=== PATIENT | female | born 1970 | race Caucasian/White ===

== ENCOUNTER 2018-08-15 11:33 | Outpatient (REF) | payer BC, SELFPAY ==
[2018-08-15 21:09] LABS: TSH 0.84 uIU/mL (0.358-3.74)
== END 2018-08-15 11:53 ==
LOC: NCHCN 11:33
PROVIDERS: PCP Internal Medicine; Visit Provider Registered Nurse
DX: E03.9 Hypothyroidism, unspecified (principal)
CPT/HCPCS: 84443

== ENCOUNTER 2020-01-01 12:16 | Outpatient (CLI) | payer BC, SELFPAY ==
[2020-01-03 08:05] LABS: COVID-19 RT-PCR Result Not Detected
== END 2020-01-01 12:36 ==
LOC: NCHCO 12:19 → LBO 13:05
PROVIDERS: PCP Nurse Practitioner Family; Visit Provider Nurse Practitioner Family
DX: Z20.828 Contact with and (suspected) exposure to other viral communicable diseases (principal); Z11.59 Encounter for screening for other viral diseases; R05 Cough
CPT/HCPCS: 87449; U0003

== ENCOUNTER 2020-04-22 13:52 | Outpatient (REF) | payer BC, SELFPAY ==
[2020-04-22 21:35] LABS: ALT 27 U/L (14-59); AST 19 U/L (15-37); Albumin 3.4 g/dL (3.4-5.0); Alkaline Phosphatase 88 U/L (46-116); Anion Gap 7.4 mmol/L (3-11); BUN 11 mg/dL (7-18); Bilirubin, Total 0.8 mg/dL (0.2-1.0); CO2 27.6 mmol/L (21.0-32.0); CREATININE 0.85 mg/dL (0.55-1.02); Calcium 8.5 mg/dL (8.5-10.1); Chloride 103 mmol/L (98-107); Glucose 95 mg/dL (74-106); Potassium 4.3 mmol/L (3.5-5.1); Sodium 138 mmol/L (136-145); TSH 2.26 uIU/mL (0.36-3.74); Total Protein 6.4 g/dL (6.4-8.2)
== END 2020-04-22 14:12 ==
LOC: NCHCN 13:52
PROVIDERS: PCP Nurse Practitioner Family; Visit Provider Registered Nurse
DX: E03.9 Hypothyroidism, unspecified (principal); F10.21 Alcohol dependence, in remission; Q60.0 Renal agenesis, unilateral
CPT/HCPCS: 80053; 84443

== ENCOUNTER 2020-04-25 16:57 | Outpatient (REF) | payer BC, SELFPAY ==
[2020-04-25 21:01] LABS: Calculated LDL 187 mg/dL (<100); Cholesterol 288 mg/dL (<200); HDL Cholesterol 75 mg/dL (40-60); Triglyceride 131 mg/dL (<150)
== END 2020-04-25 17:17 ==
LOC: NCHCN 16:57
PROVIDERS: PCP Nurse Practitioner Family; Visit Provider Registered Nurse
DX: E78.5 Hyperlipidemia, unspecified (principal)
CPT/HCPCS: 80061

== ENCOUNTER 2020-05-21 00:55 | Outpatient (CLI) | payer BC, SELFPAY ==
--- NOTE | 2020-05-21 | DI.US_ITS ---
EXAM: US SOFT TISSUE HEAD OR NECK CLINICAL HISTORY: SUBCUTANEOUS MASS OF NECK, R22.1 TECHNIQUE: Ultrasound performed using standard protocol. COMPARISON: No exams were available for comparison FINDINGS: Ultrasound was performed to evaluate questionable palpable area of abnormality of the left superior a nterior cervical region. There is no evidence of a mass. Thyroid and submandibular glands are unrem arkable in appearance. No cervical adenopathy. IMPRESSION: Negative soft tissue ultrasound, if there is a high clinical suspicion of mass additional evaluation with CT may be considered. DATA REPOSITORY:
--- NOTE | 2020-05-21 | DI.MAMMO_ITS ---
EXAM: MAMMO SCREENING CLINICAL HISTORY: SCREENING, PREVENTIVE CARE, Z00.00 TECHNIQUE: Mammograms were interpreted according to the usual protocol including computer analysis w [employer] system, tomosynthesis and C-view imaging. COMPARISON: FINDINGS: The breasts are of moderate density with fairly symmetrical distribution fibroglandular tissue. No d ominant mass or clumped microcalcification is identified in either breast. Current examination is co mpared with previous examinations including November 2015 and there has been no gross interval change in appearance in comparison with the prior studies. IMPRESSION: No specific evidence of malignancy at this time. Routine screening examinations are suggested at yea rly intervals in this age group according to the ACS ACR guidelines. BI-RADS Category 1 - Negative Breast Density - Category B - Scattered areas of fibroglandular density
== END 2020-05-21 01:15 ==
PROVIDERS: PCP Registered Nurse; Visit Provider Registered Nurse
DX: Z12.39 Encounter for other screening for malignant neoplasm of breast (principal); Z00.00 Encounter for general adult medical examination without abnormal findings; R92.2 Inconclusive mammogram
CPT/HCPCS: 76536; 77063; 77067

== ENCOUNTER 2020-06-17 12:11 | Day surgery (SDC) | payer BC, SELFPAY ==
--- NOTE | 2020-06-17 07:07 | W.COLOREPORT ---
Date of service: 06/17/20 Time of Service: 13:30 Colonoscopy Report Date of procedure: 06/17/20 Pre-op diagnosis general: Colon Cancer Screening Post-op diagnosis procedure note: other (multiple polyps) Procedure: Colonoscopy with polypectomy Surgeon: Maday Rodriges Anesthesia proc note operative: other (General/ ASA 2/Morenita Fisher CRNA) Estimated blood loss (mL): 3 Pathology: other (Ascending colon, proximal Transverse, mid-transverse, distal transverse, descending colon x3, sigmoid colon) Complications: None Disposition: same day Indications: The patient is here for Colonoscopy pre-op. She has no family history of colon cancer. She has not had any bowel habit changes. -Discussed colonoscopy bowel prep as well as the procedure. Discussed possible complications of the procedure to include bleeding, pain, perforation, missed small lesion/polyp, sore throat, aspiration and adverse reaction to the medications. Questions were answered to patient?s satisfaction. No guarantees were implied or given. Prep: Miralax/Dulcolax Procedure Start Time: 13:30 Procedure End Time: 13:59 Retraction Time: 16 minutes Findings: multiple pre-cancerous polyps Procedure Description: After informed consent was obtained the patient was taken to the procedure room and placed in a left decubitous position. Monitors were applied and a time out was done. The patients name, date of , procedure, allergies to medications and metal in their body was reviewed. The patient was then sedated. Once sedated and comfortable a rectal exam was done. External exam was normal. Internal exam revealed a normal sphincter tone and no palpable masses. The scope was then introduced and retro-flexed. No internal hemorrhoids were identified. The scope was then advanced to the cecum without difficulty. The ileocecal valve and appendiceal orifice were identified. The prep was good. The scope was then slowly retracted over 16 minutes back into the rectum. Polyps were removed with cold forceps in the ascending colon, Transverse colon x3, descending colon x3, and sigmoid colon x1. The scope was removed and the patient was woken up and taken back to Same day surgery in stable condition. The patient tolerated the procedure well and there were no immediate complications. Follow up: The patient should follow up in 3-5 years unless they develop changes in bowel habits or other new gastrointestinal complaints.
--- NOTE | 2020-06-17 07:08 | W.PM.DSUDISC ---
Discharge Plan Disposition Patient Disposition: HOME Condition: Good Discharge Details Reason For Visit: Colonoscopy Attending Provider: Maday Rodriges Primary Care Provider: CISCO BOTELLO Home Meds and New Rx's Prescriptions: Continued naltrexone 50 mg tablet 50 mg PO DAILY RF: 0 citalopram 10 mg tablet 10 mg PO DAILY RF: 0 omeprazole 20 MG capsule,delayed release(DR/EC) 20 mg PO DAILY RF: 0 levothyroxine 125 MCG tablet 125 mcg PO DAILY RF: 0 Discontinued polyethylene glycol 3350 17 gram/dose powder 238 g PO ONCE Qty: 238 RF: 0 bisacodyl [Dulcolax (bisacodyl)] 5 mg tablet,delayed release (DR/EC) 5 mg PO ONCE Qty: 4 RF: 0 Discharge Instructions Instructions: Colorectal Polyps (DC) Additional Instructions: Findings: 8 polyps Follow up: 3-5 years Please call if you develop: fevers >101.5 Nausea or Vomiting Abdominal pain that is not transient DAY SURGERY UNIT POST ENDOSCOPY INSTRUCTIONS 1. Because there will be medication in your system for the next 24 hours, you may feel a little sleepy. Your coordination will be affected. Therefore: a. Do not drive or operate dangerous equipment for 24 hours. b. Do not drink alcohol beverages for 24 hours (not even beer). c. Plan to go home and rest for the day. 2. Generally there are no restrictions on your activity after a day or so has gone by, but you may feel a bit fatigued for a few days. 3 After you arrive home you may have a light meal and return to a normal diet as you can tolerate it without feeling sick to your stomach. 4. After surgery, you may feel pain or discomfort. This should be only transient, but if it persists please contact your doctor. 5. If there are any questions regarding the findings of your procedure, please feel free to contact your doctor. 6. If you are unable to contact your doctor with a problem, contact the hospital at [phone]. 7. Continue all your regular medications unless directed otherwise. I understand the above instructions and have no questions. Signature of Patient or Responsible Adult Escort Date/Time Name of Responsible Adult Escort Signature of Nurse Date/Time Activity:: Activity as Tolerated Diet:: As Tolerated Discharge Orders Discharge Orders: Discharge Order (Routine); Ordered 06/17/20 Ordered By: Maday Rodriges
[2020-06-17 12:15] VITALS: BP 131/83; PULSE 63; RESP 18; TEMP 36.1; O2SAT 97
[2020-06-17] MEDS: Lactated Ringers 1,000 ML 80 ML IV (12:44)
--- NOTE | 2020-06-17 13:36 | BOWEL_PTH ---
PATIENT: Chelsey Lopez LOC: [facility] U#:[id number] AGE/SX: 50/F ROOM: RE06/17/[address]: Maday Rodriges MD : [id number] BED: DIS: 06/17/2020 SPEC #: [id number] RECD: 06/17/20 14:58 STATUS: BELLA RE #: [id number] GALE: 06/17/20 13:[address]: Maday Rodriges DEPT: Surgical Specimen RECD BY: Korin Lovett ENTERED: 06/17/20 15:05 SP TYPE: Bowel OTHR DR: Shana Douglass Tissues: 1 - BIOPSY BOWEL 2 - BIOPSY BOWEL 3 - BIOPSY BOWEL 4 - BIOPSY BOWEL 5 - BIOPSY BOWEL 6 - BIOPSY BOWEL Procedures: GROSS AND MICRO LEVEL 4 Comments: [id number]
[2020-06-17 14:30] VITALS: BP 116/65; PULSE 61; RESP 18; TEMP 36; O2SAT 98
== END 2020-06-17 14:45 | disposition home or self-care (01) ==
PROVIDERS: PCP Registered Nurse; Visit Provider Surgery
PROC: 0DJD8ZZ Inspection of Lower Intestinal Tract, Via Natural or Artificial Opening Endoscopic (ICD-10-PCS; CPT 45378; principal; 2020-06-17 12:15)
DX: Z12.11 Encounter for screening for malignant neoplasm of colon (principal); D12.2 Benign neoplasm of ascending colon; D12.3 Benign neoplasm of transverse colon; K63.5 Polyp of colon; K21.9 Gastro-esophageal reflux disease without esophagitis; F10.20 Alcohol dependence, uncomplicated
CPT/HCPCS: 45380; 88305; J2001

== ENCOUNTER 2020-11-25 23:53 | Emergency (ER) | payer BC, SELFPAY ==
--- NOTE | 2020-11-25 23:54 | W.ED.GENAD ---
Discharge Plan Disposition Patient Disposition: HOME Condition: Good Discharge Details Clinical Impression: Depression Primary Care Provider: CISCO BOTELLO ED Provider: Viral Cabezas Home Meds and New Rx's Prescriptions: Continued naltrexone 50 mg tablet 50 mg PO DAILY RF: 0 citalopram 10 mg tablet 10 mg PO DAILY RF: 0 omeprazole 20 MG capsule,delayed release(DR/EC) 20 mg PO DAILY RF: 0 levothyroxine 125 MCG tablet 125 mcg PO DAILY RF: 0 Discharge Instructions Instructions: Depression (ED) Additional Instructions: At this time with the safety plan in place you feel comfortable to go home. If at any point you do not feel like home is in your best interest, or you again feel like you may want to harm yourself, please contact 911 or us immediately. Please use your mental health advocate whom you have been put in contact with [facility]. If you notice any worsening of your symptoms, or any new symptoms such as vomiting, diarrhea, fever, chills, shortness of breath, chest pain, numbness, weakness, or fainting , please return immediately to the emergency department for reevaluation. Please follow up with your primary care provider as soon as possible for reassessment and reevaluation. As always, it was a pleasure participating in your medical care today. Referrals: CISCO BOTELLO, CHASER APPRENTICE [Primary Care Provider] - Medical Decision Making 50-year-old female with a past medical history of reflux, and hypothyroidism presents today for evaluation of suicidality and depression. Patient states that over the last few weeks she has had notable stressors in her life, she has a counselor, and the current pandemic has been hard. Over the last week or so she has had a notable contentious episode with one of her closest friends, and over the last 48 hours that is led to a significant amount of strike and grief. This evening she feels that things finally climax with an impending sense of her wanting to end her life, she states that she would do this by using a gun to shoot herself in the head. She does state that she has been drinking a fair bit of alcohol tonight as well. She denies any IV or illicit drug use. She denies any auditory visual hallucinations. She does have a family history of depression but no family history of suicidality or suicide. She states that this is the first time she has ever felt this way. She has no other complaints at this time. No other modifying factors. Physical exam is unremarkable. Vital signs are stable. Patient does appear slightly anxious currently. I did speak with the patient's and confirmed the story. At this time we will do laboratory work-up, gently rehydrate, and perform medical screening. Patient will be placed in blue scrubs, we will get a patient observer. We will reevaluate after we understand her current alcohol intoxication status. 3:18 AM Patient is medically cleared, laboratory work-up unremarkable. The patient has been seen and assessed by mental health, after long thorough discussions, and multiple reevaluations by myself and mental health, the patient, the mental health advocate, and myself all feel that the patient is stable currently to go home with a safety plan. I did rediscuss this with the patient and the patient's separately, they both agreed to a safety plan at home. Patient feels much better at this time, she states that currently she does not want to harm herself or end her life but she does have significant social stressors at home that she does want to deal with. Patient would like to go home. Patient will be discharged home. will come to pick the patient up. I have extensively reviewed the treatment plan and discharge instructions with the patient and their family. I have addressed all patient concerns at this time. The patient and family was made aware of what symptoms to monitor for that would warrant a return to the emergency department. Discussed the plan with the patient and family, they demonstrate verbal understanding and agreement with our assessment and plan at this time. The documentation in this chart was dictated using [employer] dictation software. Please excuse any dictation errors. HPI General Date/Time Provider Initiated Documentation: 11/25/20 23:53. HPI Narrative: 50-year-old female with a past medical history of reflux, and hypothyroidism presents today for evaluation of suicidality and depression. Patient states that over the last few weeks she has had notable stressors in her life, she has a counselor, and the current pandemic has been hard. Over the last week or so she has had a notable contentious episode with one of her closest friends, and over the last 48 hours that is led to a significant amount of strike and grief. This evening she feels that things finally climax with an impending sense of her wanting to end her life, she states that she would do this by using a gun to shoot herself in the head. She does state that she has been drinking a fair bit of alcohol tonight as well. She denies any IV or illicit drug use. She denies any auditory visual hallucinations. She does have a family history of depression but no family history of suicidality or suicide. She states that this is the first time she has ever felt this way. She has no other complaints at this time. No other modifying factors. Related Data Home Medications Medication Instructions Recorded Confirmed levothyroxine 125 mcg PO DAILY 05/24/14 06/17/20 omeprazole 20 mg PO DAILY tab-cap NS 05/17/18 06/17/20 citalopram 10 mg tablet 10 mg PO DAILY 06/06/20 06/17/20 naltrexone 50 mg tablet 50 mg PO DAILY 06/06/20 06/14/20 Allergies Allergy/AdvReac Type Severity Reaction Status Date / Time erythromycin base AdvReac Mild Nausea Unverified 06/17/20 12:28 [Erythromycin Base] Review of Systems All systems reviewed & are unremarkable except as noted in HPI and below PFSH Medical History Alcohol abuse, in remission BMI 32.0-32.9,adult Chronic anxiety Chronic low back pain Depression History of vitamin D deficiency Hyperlipidemia Hypothyroid Insomnia Osteopenia Single kidney Subcutaneous mass of neck Urinary incontinence, urge Surgical History H/O eye surgery History of kidney surgery History of total abdominal hysterectomy Social History Smoking/Tobacco Use Status: Never Smoking risk assessment performed?: Yes Alcohol Intake: current Alcohol Intake frequency: a few times a week Alcohol type: beer Drug use: Never Substance use type: does not use Do you feel safe at home: Yes Do you feel safe in your relationship?: Yes Exam Narrative Exam Narrative: 1.Const: Well-nourished, Well-developed, appearing stated age 2.Eyes: PERRL, no conjunctival injection, and symmetrical lids. 3.ENT: Atraumatic external nose and ears. Moist MM. Neck: Symmetric, trachea midline, No thyromegaly. 4.CVS: +S1/S2, No murmurs or gallops. Peripheral pulses 2+ and equal in all extremities. Brisk capillary refill in all extremities. 5.RESP: Unlabored respiratory effort. Clear to auscultation bilaterally. No wheezes rales or rhonchi 6.GI: Soft, Nontender/Nondistended, No hepatosplenomegaly. No guarding or rebound. 7.MSK: Normocephalic/Atraumatic, Extremities w/o deformity or ttp No cyanosis or clubbing, Normal movement of all extremities 8.Skin: Warm, Dry. No rashes or lesions. 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 Sensation grossly intact, no focal neurologic deficits. 10.Psych: (AAO) x3. Appropriate mood and affect
[2020-11-26] VITALS: BP 138/93; PULSE 123; RESP 18; TEMP 36.9; O2SAT 95
[2020-11-26 00:39] LABS: Abs Immature Grans 0.02 10^3/uL (0.0-0.06); Absolute Basophil Count 0.02 10^3/uL (0.0-0.2); Absolute Eosinophil Count 0.23 10^3/uL (0.0-0.7); Absolute Lymphocyte Count 2.64 10^3/uL (1.2-3.4); Absolute Monocyte Count 0.54 10^3/uL (0.1-0.8); Absolute Neutrophil Count 3.93 10^3/uL (1.2-6.7); Basophils % 0.3; Eosinophils % 3.1; HCT 49.8 % (36.0-46.0); HGB 16.2 g/dL (11.2-15.7); Immature Grans % 0.3; Lymphocytes % 35.8; MCH 27.4 pg (27.0-33.0); MCHC 32.5 % (32.0-36.0); MCV 84.3 fL (80-95); Monocytes % 7.3; Neutrophils % 53.2; Nucleated RBC 0 %; Platelet Count 365 10^3/uL (130-400); RBC 5.91 10^6/uL (3.93-5.22); RDW 12.4 % (11.7-14.6); RDW-SD 38.3 fL; WBC 7.38 10^3/uL (4.4-10.8)
[2020-11-26 00:52] LABS: *AMPHETAMINES SCREEN URINE Negative (Negative); *BARBITURATES SCREEN URINE Negative (Negative); *BENZODIAZEPINES SCREEN URINE Negative (Negative); Cannabinoids THC Negative (Negative); Cocaine Screen,Urine Negative (Negative); METHADONE URINE SCREEN Negative (Negative); OPIATES URINE SCREEN Negative (Negative)
[2020-11-26] MEDS: Acetaminophen 500 MG TAB 1000 MG PO (01:00)
[2020-11-26] MEDS: Normal Saline 1,000 ML 1000 ML IV (01:03)
[2020-11-26 01:04] LABS: ALT 28 U/L (14-59); AST 15 U/L (15-37); Alkaline Phosphatase 101 U/L (46-116); Anion Gap 12.9 mmol/L (3-11); BUN 12 mg/dL (7-18); Bilirubin, Total 0.8 mg/dL (0.2-1.0); CO2 24.1 mmol/L (21.0-32.0); CREATININE 0.9 mg/dL (0.55-1.02); Calcium 8.8 mg/dL (8.5-10.1); Chloride 104 mmol/L (98-107); ETHANOL BLOOD 68.4 mg/dL (<3); Glucose 131 mg/dL (74-106); Potassium 3.8 mmol/L (3.5-5.1); Sodium 141 mmol/L (136-145); TSH (W/Ref FT4) 5.45 uIU/mL (0.36-3.74)
[2020-11-26 01:05] LABS: Tricyclic Antidepressants Negative (Negative)
[2020-11-26] MEDS: Ketorolac 30 MG/ML VIAL IVP (01:06)
[2020-11-26 01:23] LABS: Acetaminophen < 2 ug/mL (10-30); Salicylate < 2.8 mg/dL (<2.8)
--- NOTE | 2020-11-26 01:40 | NUR.NOTE ---
Addendum entered by Radha Cobos RN 11/26/20 04:46: 0215 Call back from Mental Health to eval. patient. Original Note: Nursing Note:Waiting for call back from Mental health to evaluate patient via Zoom. Patient sleeping.
[2020-11-26 01:46] LABS: FREE T4 1.05 ng/dL (0.76-1.46)
--- NOTE | 2020-11-26 02:19 | NUR.NOTE ---
Pt speaking with Rosalina via Zoom
[2020-11-26 03:27] VITALS: BP 123/63; PULSE 92; RESP 16; TEMP 36.4; O2SAT 97
--- NOTE | 2020-11-26 03:29 | NUR.NOTE ---
Pt safe for DC home per mental health and MD Cabezas. Belongings returned. Pt feels safe to go home, aware to return for feelings of SI/unsafe.
--- NOTE | 2020-11-26 09:22 | PDOC.MHPN2 ---
Date of service: 11/26/20 Time of Service: 09:38 Mental Health Progress Note Progress Note Progress Note: Presenting Issue: Client drove herself to the ED for SI after having a fight with her friend. Precipitating Factors Client reports feeling overwhelmed lately, but that her SI was triggered by an argument she had with a close friend. Client states that her friend made comments about an upcoming trip the client had planned with her to [place], and that the friend told her it was a sin to go to a casino. Client reports this conversation triggered SI, and that feels like it would be easier if she was , so she wouldn't have to feel the judgment from this friend. Disposition * Behavior: Client is cooperative and talkative, and becomes tearful when speaking about the conflict with her friend. *Eye Contact: Good *Mood: Depressed, anxious *Affect: Congruent *Appetite: Fair *Sleep(troubel falling/staying asleep): Client reports she hasn't slept in days because of this incident. Plan(please elaborate and include that physician is consulted with plan and/or placement): Client will be discharged home, and is willing to contract for safety. This medical writer spoke with client's to ensure the firearm in their home is locked, meds are locked away, and sharps are out of client's access. Client's will pick her up from the ED and will not go to work tomorrow. Client has agreed to check in with [facility] in the morning between 0830 and 0900, and will call her PCP to request a therapy referral. Client declined further [facility] services. Clinician's Name , Title, and Signature Kayy Acosta [facility] Emergency Services Make sure that you are photocopying and submitting this to [facility] records Dept. to be scanned into chart.
== END 2020-11-26 03:42 | disposition home or self-care (01) ==
PROVIDERS: Emergency Provider Student in an Organized Health Care Education/Training Program; PCP Registered Nurse
DX: F41.8 Other specified anxiety disorders (principal); F10.10 Alcohol abuse, uncomplicated; Y90.3 Blood alcohol level of 60-79 mg/100 ml
CPT/HCPCS: 36415; 80053; 80307; 81025; 96361; 96374; 99284; 80320; 80329; 84439; 84443; 85025; J1885

== ENCOUNTER 2021-05-21 08:43 | Outpatient (REF) | payer BC, SELFPAY ==
[2021-05-21 14:45] LABS: Calculated LDL 134 mg/dL (<100); Cholesterol 223 mg/dL (<200); HDL Cholesterol 77 mg/dL (40-60); TSH 3.06 uIU/mL (0.36-3.74); Triglyceride 61 mg/dL (<150)
== END 2021-05-21 08:44 | disposition home or self-care (01) ==
LOC: NCHCN 08:43
PROVIDERS: PCP Registered Nurse; Visit Provider Registered Nurse
DX: R94.6 Abnormal results of thyroid function studies (principal); Z13.220 Encounter for screening for lipoid disorders
CPT/HCPCS: 80061; 84443

== ENCOUNTER 2022-07-31 14:26 | Emergency (ER) | payer BC, SELFPAY ==
[2022-07-31 14:31] VITALS: BP 138/71; PULSE 78; RESP 18; TEMP 36.6; O2SAT 99
--- NOTE | 2022-07-31 14:45 | DI.RAD_ITS ---
Exam(s) XR HUMERUS LT EXAM: XR HUMERUS LT CLINICAL HISTORY: pain, fall 1 week ago. TECHNIQUE: 2D digital imaging was performed of the left humerus. Two images were obtained. AP and lateral views were obtained. COMPARISON: No exams were available for comparison FINDINGS: BONES: On the lateral view there appears to be a nondisplaced fracture involving the greater tuberosi ty posteriorly. No bony destructive lesion is seen. Visualized portion of elbow and shoulder joints are unremarkable. SOFT TISSUE: Normal. IMPRESSION: Findings suspicious for nondisplaced greater tuberosity fracture. A CT scan of the shoulder may be o btained for further evaluation. DATA REPOSITORY: RADIATION DOSE DELIVERED:
[2022-07-31] MEDS: Ibuprofen 400 MG TAB PO (15:21)
--- NOTE | 2022-07-31 15:24 | ED.GENADUL_ITS ---
Discharge Plan Disposition Patient Disposition: HOME Discharge Details Clinical Impression: Muscle strain of left upper arm Primary Care Provider: Shana Douglass ED Provider: Lex Montiel Home Meds and New Rx's Prescriptions: Continued levothyroxine 125 mcg tablet 1 tab PO DAILY Label Comments: TAKE 1 TABLET BY MOUTH EVERY DAY Discharge Instructions Instructions: Muscle Strain (ED) Additional Instructions: Please take ibuprofen over the counter. Take 600mg by mouth every 6 hours as needed for pain. Please use sling over the next week. Please follow-up with orthopedics if pain persists over the next few days. Please contact your primary care physician to arrange follow-up. Return to the ER immediately for any worsening or new concerning symptoms. Referrals: [facility] [Provider Group] Shana Douglass, CLINIC LEAD [Primary Care Provider] - Medical Decision Making 52-year-old female here 1 week after fall with trauma to left upper arm, had persistent pain that worsened with fall today. Patient neurovascular intact distally. Axillary nerve function intact. She seems to have tenderness over her brachialis and has limited range of motion with pain during abduction. Biceps function appears intact. X-ray of the left humerus was reviewed and interpreted by me: No fracture. Suspect muscle strain. Plan to place patient in sling for immobilization. I reviewed pendulum exercises with her. I have recommended she follow-up with orthopedics should pain not improve over the next few days. HPI General Mode of arrival: ambulatory . Date/Time Provider Initiated Documentation: 07/31/22 14:45 . Limitations to Documentation: no limitations . Information obtained by: patient . HPI Narrative: 52-year-old female here with left arm pain. Patient notes she fell about a week ago and impacted her left mid upper arm. She notes she had pain in the arm that was worse with any abduction and proximal to mid upper arm. Today she tripped and fell but was able to catch herself without impacting her arm and notes pain has worsened since the fall. Pain is now moderate. No associated numbness or tingling. Related Data Home Medications Medication Instructions Recorded Confirmed levothyroxine 125 mcg tablet 1 tab PO DAILY 07/31/22 07/31/22 Allergies Allergy/AdvReac Type Severity Reaction Status Date / Time erythromycin base AdvReac Mild Nausea Unverified 11/26/20 04:51 [Erythromycin Base] General Stated Complaint: Orthopedic YU: 4 Review of Systems Musculoskeletal Musculoskeletal: Reports as per HPI Neurologic Neurologic: Denies sensory deficit PFSH All Active Problems (Updated 07/31/22 @ 15:39 by Lex Montiel MD) Muscle strain of left upper arm (Acute) Medical History Alcohol abuse, in remission BMI 32.0-32.9,adult Chronic anxiety Chronic low back pain Depression History of vitamin D deficiency Hyperlipidemia Hypothyroid Insomnia Osteopenia Single kidney Subcutaneous mass of neck Urinary incontinence, urge Surgical History H/O eye surgery History of kidney surgery History of total abdominal hysterectomy Social History Smoking/Tobacco Use Status: Never Smoking risk assessment performed?: Yes Alcohol Intake: current Alcohol Intake frequency: a few times a week Alcohol type: beer Drug use: Never Substance use type: does not use Do you feel safe at home: Yes Do you feel safe in your relationship?: Yes Exam Const General: cooperative and no acute distress HENMT Mouth: moist mucous membranes Cardio Rate: regular rate and not tachycardic Rhythm: regular rhythm Skin General skin exam: no rashes or lesions noted Neuro General: patient alert, patient awake and tone normal Extrem Left upper extremity: shoulder/upper arm Details: tenderness (Over brachialis), axillary nerve sensory function normal and abnormal ROM Details: pain with active ROM Details: in ABduction; no swelling, no ecchymosis, no deformity and no unsual warmth Course Vital Signs Vital signs: Vital Signs Temperature 36.6 C 07/31/22 14:31 Pulse 78 07/31/22 14:31 Respiratory Rate 18 07/31/22 14:31 Blood Pressure 138/71 07/31/22 14:31 Pulse Oximetry 99 07/31/22 14:31 Temperature 36.6 C 07/31/22 14:31 Temperature Source Temporal Artery Scan 07/31/22 14:31 Pulse 78 07/31/22 14:31 Respiratory Rate 18 07/31/22 14:31 Respiratory Effort Non-Labored 07/31/22 14:34 Blood Pressure 138/71 07/31/22 14:31 Blood Pressure Position Sitting 07/31/22 14:31 Pulse Oximetry 99 07/31/22 14:31 Oxygen Delivery Method Room Air 07/31/22 14:31 Oxygen Flow Rate 0 07/31/22 14:31 Pain Level 10 07/31/22 14:31
[2022-07-31 15:59] VITALS: BP 130/80; PULSE 71; RESP 18; TEMP 37; O2SAT 98
== END 2022-07-31 16:04 | disposition home or self-care (01) ==
PROVIDERS: Emergency Provider Student in an Organized Health Care Education/Training Program; PCP Registered Nurse
DX: S46.912A Strain of unspecified muscle, fascia and tendon at shoulder and upper arm level, left arm, initial encounter (principal); W01.0XXA Fall on same level from slipping, tripping and stumbling without subsequent striking against object, initial encounter
CPT/HCPCS: 99281; 73060; 99282

== ENCOUNTER 2022-08-10 10:27 | Outpatient (CLI) | payer BC, SELFPAY ==
--- NOTE | 2022-08-10 09:45 | DI.RAD_ITS ---
Exam(s) XR SHOULDER LT COMPLETE 2+V EXAM: XR SHOULDER LT COMPLETE 2+V INDICATION: follow up. COMPARISON: CR XR HUMERUS LT from 07/31/2022 TECHNIQUE: 2D digital imaging was performed. Two views. FINDINGS: There has been no change in the alignment of the nondisplaced fracture at the greater tuberosity. No new fracture is present. No bony destructive lesion is seen. DATA REPOSITORY: RADIATION DOSE DELIVERED:
== END 2022-08-10 10:28 | disposition home or self-care (01) ==
LOC: DIORS 10:28
PROVIDERS: PCP Registered Nurse; Referring Provider Registered Nurse; Visit Provider Physician Assistant Surgical
DX: S42.255D Nondisplaced fracture of greater tuberosity of left humerus, subsequent encounter for fracture with routine healing
CPT/HCPCS: 73030

== ENCOUNTER 2022-11-20 15:11 | Outpatient (REF) | payer BC, SELFPAY ==
[2022-11-20 16:09] LABS: ALT 23 U/L (14-59); AST 22 U/L (15-37); Alkaline Phosphatase 64 U/L (46-116); Anion Gap 8.3 mmol/L (3-11); BUN 14 mg/dL (7-18); Bilirubin, Total 1.2 mg/dL (0.2-1.0); CO2 27.7 mmol/L (21.0-32.0); CREATININE 0.8 mg/dL (0.55-1.02); Calcium 9.6 mg/dL (8.5-10.1); Calculated LDL 190 mg/dL (<100); Chloride 102 mmol/L (98-107); Cholesterol 286 mg/dL (<200); Glucose 97 mg/dL (74-106); HDL Cholesterol 78 mg/dL (40-60); Potassium 3.9 mmol/L (3.5-5.1); Sodium 138 mmol/L (136-145); TSH 0.75 uIU/mL (0.36-3.74); Total Protein 7.3 g/dL (6.4-8.2); Triglyceride 92 mg/dL (<150)
[2022-11-20 16:19] LABS: Vitamin D 25 Total 67.5 ng/mL (30-100)
== END 2022-11-20 15:12 | disposition home or self-care (01) ==
LOC: NCHCN 15:11
PROVIDERS: PCP Registered Nurse; Visit Provider Family Medicine
DX: E03.9 Hypothyroidism, unspecified (principal); E78.5 Hyperlipidemia, unspecified; F10.20 Alcohol dependence, uncomplicated; Z86.39 Personal history of other endocrine, nutritional and metabolic disease
CPT/HCPCS: 80053; 80061; 82306; 84443

== ENCOUNTER 2023-03-19 00:08 | Outpatient (CLI) | payer BC, SELFPAY ==
--- NOTE | 2023-03-19 08:00 | DI.MAMMO_ITS ---
Exam(s) MAMMO SCREENING EXAM: MAMMO SCREENING CLINICAL HISTORY: PREVENTIVE CARE Z00.00 SCREENING FOR BREAST CANCER TECHNIQUE: Mammograms were interpreted according to the usual protocol including computer analysis w [employer] CAD system, tomosynthesis and C-view imaging. COMPARISON: 2013 through 2019 FINDINGS: The breasts are composed of scattered fibroglandular densities, Breast Density category B. No suspicious masses or suspicious microcalcifications are seen. No skin thickening or abnormal axillary lymph nodes are seen. There has been no significant change from prior exams. IMPRESSION: BI-RADS Category 1, Negative mammogram Yearly screening mammography is recommended. Breast Density - Category B, scattered fibroglandular densities. A negative radiographic report should not delay biopsy if a dominant or clinically suspicious mass is present. Up to ten percent of cancers are not identified on mammography. A negative report may reinforce clinical impression. Adenosis and dense breasts may obscure an underlying neoplasm. False positive reports average 6 to 10%. Patient will receive a letter notifying them of these results.
== END 2023-03-19 00:28 ==
LOC: DI 00:08
PROVIDERS: PCP Registered Nurse; Visit Provider Family Medicine
DX: Z12.31 Encounter for screening mammogram for malignant neoplasm of breast (principal)
CPT/HCPCS: 77063; 77067

== ENCOUNTER 2023-05-03 10:48 | Outpatient (REF) | payer BC, SELFPAY ==
[2023-05-03 16:05] LABS: Calculated LDL 160 mg/dL (<100); Cholesterol 244 mg/dL (<200); HDL Cholesterol 67 mg/dL (40-60); Triglyceride 89 mg/dL (<150)
== END 2023-05-03 10:49 | disposition home or self-care (01) ==
LOC: NCHCN 10:48
PROVIDERS: PCP Registered Nurse; Visit Provider Family Medicine
DX: E78.5 Hyperlipidemia, unspecified (principal)
CPT/HCPCS: 80061

== ENCOUNTER 2023-06-04 09:26 | Outpatient (REF) | payer BC, SELFPAY ==
[2023-06-04 16:47] LABS: TSH 2.15 uIU/mL (0.36-3.74)
== END 2023-06-04 09:27 | disposition home or self-care (01) ==
LOC: NCHCN 09:26
PROVIDERS: PCP Registered Nurse; Visit Provider Family Medicine
DX: E03.9 Hypothyroidism, unspecified (principal)
CPT/HCPCS: 84443

== ENCOUNTER 2023-06-10 07:47 | Day surgery (SDC) | payer BC, SELFPAY ==
--- NOTE | 2023-06-09 20:46 | W.PM.DSUDISC ---
Date of service: 06/10/23 Time of Service: 09:54 Discharge Plan Disposition Patient Disposition: Home Condition: Good Discharge Details Reason For Visit: screening colonoscopy and EGD Attending Provider: Jaime Agarwal Primary Care Provider: Destiny Gilbert Home Meds and New Rx's Prescriptions: Continued omeprazole 20 mg capsule,delayed release(DR/EC) 20 mg PO DAILY levothyroxine 125 mcg tablet 1 tab PO DAILY Patient Comments: TAKE 1 TABLET BY MOUTH EVERY DAY Discontinued bisacodyl [Dulcolax (bisacodyl)] 5 mg tablet,delayed release (DR/EC) 5 mg PO ONCE Qty: 4 0RF Rx Instructions: Take per colonoscopy instructions provided by ordering providers office polyethylene glycol 3350 17 gram/dose powder 17 g PO ONCE Qty: 238 0RF Rx Instructions: Take per colonoscopy instructions provided by ordering providers office Discharge Instructions Additional Instructions: Chelsey, we were able to complete your endoscopies today without any difficulty. Your upper endoscopy shows a little bit of inflammation around your GE junction, that seems consistent with gastroesophageal reflux disease. I did perform multiple biopsies of your stomach, as well as your GE junction. When I have the results of those biopsies I will be in touch. In the meantime, I recommend continuing your omeprazole, and using Tums as needed. Your colonoscopy was negative for any kind of polyps or tumors. In fact I did not see any abnormalities at all. Based on your family history, I do recommend that you continue with screening colonoscopies every 5 years. 1. If tolerated, consume a soft, low fiber diet for 1-2 days. 2[address] Do not drive, drink alcohol, operate machinery, make critical decisions, or do activities that require coordination or balance for 24 hours. 3. Because air was put into your colon during the procedure, expelling air from your rectum (passing gas or farting) is normal. 4. You may not have a bowel movement for 1-3 days because of the colonoscopy prep. This is normal. 5. You may experience a sore throat for 24 to 48 hours. You may use throat lozenges or gargle with warm salt water to relieve the discomfort. 6. Because air was put into your stomach during the procedure, you may experience some belching. 7. Go directly to the emergency room if you notice any of the following: Develop chills (warm to touch), or if you have a thermometer and your temperature is above 101 Difficulty breathing or difficultly swallowing Persistent vomiting Severe abdominal pain, other than gas cramps Severe chest pain Black, tarry stools Any bleeding ? exceeding one tablespoon 8. Call your physician if the site where your intravenous was started becomes red, swollen, painful, and warm to touch. 9. Your physician has reviewed your pre-procedure medications. Please continue to take those medications as previously ordered. You will be given specific information/education regarding any changes to your medications before leaving. Activity:: Activity as Tolerated Diet:: As Tolerated Discharge Orders Discharge Orders: Discharge Order (Routine); Ordered 06/09/23 Ordered By: Jaime Agarwal DS: Diagnosis Discharge Diagnosis (1) Screen for colon cancer: Status: Acute Asessment and Plan: Negative screening colonoscopy
--- NOTE | 2023-06-09 20:48 | W.COLOREPORT ---
Date of service: 06/10/23 Time of Service: 09:59 Colonoscopy Report Date of procedure: 06/10/23 Pre-op diagnosis general: Screening coloscopy and GERD Post-op diagnosis procedure note: other (Gastroesophageal reflux disease; negative screening colonoscopy) Procedure: EGD with biopsies and colonoscopy Surgeon: Jaime Agarwal Anesthesia Type: General:No Airway Estimated blood loss (mL): 10 Pathology: other (Random biopsies of gastric antrum and body, as well as GE junction) Complications: None Disposition: same day Indications: Rufina is a 53 year old woman with dypesia and GERD refractory to PPI. She also has a history of adenomatous polyps and she needs another screening colonoscopy Prep: Miralax/Dulcolax Procedure Start Time: 09:15 Procedure End Time: 09:37 Retraction Time: 6 Findings: GERD; negative screening colonoscopy Procedure Description: After the initiation of monitored anesthetic care, and with the assistance of a bite block, I advanced a standard gastroscope through the mouth past the hypopharynx and into the esophagus.? Under the direct vision of the scope, I advanced down the esophagus into the stomach.? Once I entered the stomach, I performed a brief inspection, followed by retroflexion towards the gastric cardia.? There was just a bit of sliding of the GE junction across the diaphragm hiatus. After that, I gently advanced the scope around the incisura angularis and examined the pylorus.? This also appeared normal.? Next, I advanced the scope through the pylorus into the duodenum.? The mucosa was pink and healthy appearing.? There were no abnormalities.? I was able to visualize bile draining into the duodenum through the ampulla Vater. I brought the camera back into the stomach, and based on the patient's dyspepsia, I did perform random biopsies of the gastric antrum and gastric body using cold forceps. There was minimal bleeding. Next, I brought the camera up to the GE junction. There was very mild irregularity of the GE junction which measured at 36 cm with the shortest port of the Z-line up to about 35 cm. I did perform biopsies of the GE junction. There was minimal bleeding here as well. I brought the camera back out along the length of the esophagus, which was totally normal. We then helped rufina into the left lateral decubitus position. I began by performing an external anorectal exam.? Perineum and skin were normal, as was the anal verge.? There was no evidence of external hemorrhoids.? Next, I performed a digital rectal exam.? I did not appreciate any abnormal findings.? Next, I advanced a colonoscope into the rectal vault.? I performed retroflexion.? This was normal.? Using insufflation, I then advanced the colonoscope beyond the rectal folds and into the sigmoid colon before advancing towards the cecum.? The quality of the prep was excellent.? The scope was noted to be in the cecum by identification of the ileocecal valve and appendiceal orifice.? I then began withdrawing the colonoscope using repeated irrigation as necessary for full evaluation of the colonic mucosa. ?Once the scope was withdrawn to the level of the rectum, great care was taken to examine portions of the rectal folds. I did not find any polyps along the length of the large intestine.? Finally, the scope was withdrawn and the patient was brought to the same-day surgery recovery unit as the anesthetic wore off. ?The findings and instructions were shared with the patient prior to discharge.
[2023-06-10 08:03] VITALS: BP 114/75; PULSE 63; RESP 16; TEMP 36.5; O2SAT 99
[2023-06-10] MEDS: Lactated Ringers 1,000 ML 80 ML IV (08:15)
--- NOTE | 2023-06-10 09:00 | W.ANESPRE ---
General Info Date of Service Date Performed: 06/10/23 Height: 5 ft 2 in Weight: 79.3 kg Body Mass Index (BMI): 31.9 Surgical Procedure: Operation Date: 06/10/23 09:05 Proposed Procedure Side Surgeon p Colonoscopy/Gastroscopy Jaime Agarwal MD Actual Procedure Side Surgeon p Colonoscopy/Gastroscopy Not Applicable Jaime Agarwal MD Pre-Op Diagnosis Post-Op Diagnosis hx of colon polyps and GERD Meds Allergies and Home Medications Allergies Allergy/AdvReac Type Severity Reaction Status Date / Time erythromycin base AdvReac Mild Nausea Verified 06/10/23 08:18 [Erythromycin Base] Home Medication Medication Instructions Recorded levothyroxine 125 mcg tablet 1 tab PO DAILY 07/31/22 omeprazole 20 mg capsule,delayed 20 mg PO DAILY 05/20/23 release Current Visit Medications: Current Medications Generic Name Dose Route Start Last Admin Trade Name Freq PRN Reason Stop Dose Admin Hyoscyamine Sulfate 0.125 mg 06/09/23 20:51 Hyoscyamine 0.125 Mg Sl/Oral/Chew SL 07/09/23 20:50 DIRECTED PRN Ringer's Solution 1,000 mls @ 80 mls/hr 06/10/23 06:00 06/10/23 08:15 IV 07/09/23 23:59 80 mls/hr INFUSION MERCEDES Administration IV Miscellaneous Supplies 1 each 06/10/23 06:00 Iv Access IV 07/09/23 23:59 DIRECTED MERCEDES Ondansetron HCl 4 mg 06/09/23 20:51 Ondansetron 4 Mg/2 Ml Vial IVP 07/09/23 20:50 Q4H PRN PRN Nausea / Vomiting Sodium Chloride 0 ml 06/10/23 06:00 Normal Saline Flush 10 Ml Syr IV 07/09/23 23:59 PRN PRN Sodium Chloride 0 ml 06/10/23 06:00 Normal Saline 10 Ml Vial IJ 07/09/23 23:59 DIRECTED PRN Sterile Water 0 ml 06/10/23 06:00 Water,Injection,Sterile 10 Ml Vial IJ 07/09/23 23:59 DIRECTED PRN PFSH Active Problems Active Problems: Problem Status Onset Code Screen for colon cancer Z12.11 Fracture of proximal end of left humerus 07/25/22 S42.202A GERD (gastroesophageal reflux disease) K21.9 Medical History Medical History Alcohol abuse, in remission BMI 32.0-32.9,adult Chronic anxiety Chronic low back pain Depression History of vitamin D deficiency Hyperlipidemia Hypothyroid Insomnia Osteopenia Single kidney Subcutaneous mass of neck Urinary incontinence, urge Surgical History Surgical History H/O eye surgery History of kidney surgery History of total abdominal hysterectomy per pt. partial Tobacco Smoking/Tobacco Use Status: Never Alcohol Alcohol Intake: current Alcohol intake frequency: 3 or more drinks per day Alcohol type: beer Details: 4-6 beers/day. 6+ beers on the weekends Substance Use Substance use: Never Substance use type: does not use Vital Signs and Lab Results Vital Signs Most Recent Vital Signs in EMR: Most Recent Vital Signs Temp Pulse Resp BP Pulse Ox 36.5 C 63 16 114/75 99 06/10/23 08:03 06/10/23 08:03 06/10/23 08:03 06/10/23 08:03 06/10/23 08:03 Lab Results Blood Type / Crossmatch: No Data to Display Complete Blood Count: No Data to Display Complete Metabolic Panel: No Data to Display Liver Function Panel: No Data to Display Coagulation Panel: No Data to Display Cardiac Panel: No Data to Display Arterial Blood Gas: No Data to Display Venous Blood Gas: No Data to Display Pancreas Panel: No Data to Display Thyroid Panel: Thyroid Stimulating Hormone (TSH) 2.15 uIU/mL (0.36-3.74) 06/04/23 09:25 Infectious Disease: No Data to Display Blood Cultures: No Data to Display Toxicology Panel: No Data to Display Anesthesia Assessment and Plan Anesthesia History Personal History: No History of Anesthesia Complications Family History: No Family History of Anesthesia Complications Exercise Tolerance Exercise Tolerance: Metabolic Equivalents>4 Pertinent Negatives Pertinent Negatives: No Major Cardiovascular Symptoms or Complaints, No Major Pulmonary Symptoms or Complaints, No History of CVA/TIA and Other (positive GERD even with omeprazole) Cardiac & Pulmonary Exam Cardiac Exam: Normal S1/S2 Heart Sounds Pulmonary Exam: Clear Bilateral Breath Sounds Implantable Cardiac Device Does patient have a Pacemaker or an ICD?: No Airway Exam Known Difficult Airway: No Mallampati Class: 3 Mouth Opening: Normal (> 3cm) Thyromental Distance: Greater than 3 cm Neck Range of Motion: Full ROM Neck Circumference: Normal Teeth Condition: Normal Dentition ASA Classification ASA Score: ASA 2 Emergency Case?: No NPO Status NPO Status: NPO Clears >2 hours, Solids >8 hours Anesthesia Plan Resuscitation Status: Full Code Anesthesia Technique: General Anesthesia Airway Planned: Natural Airway Monitors Used: Standard Monitors
[2023-06-10 09:03] VITALS: BMI 31.9
--- NOTE | 2023-06-10 09:16 | STOM_PTH ---
PATIENT: Chelsey Lopez LOC: [facility] U#:[id number] AGE/SX: 53/F ROOM: RE06/10/[address]: Jaime Agarwal MD : 1970 BED: DIS: 06/10/2023 SPEC #: [id number] RECD: 06/10/23 12:35 STATUS: TAMARAmalia RE #: [id number] GALE: 06/10/23 09:[address]: Jaime Agarwal DEPT: Surgical Specimen RECD BY: Janae Mario ENTERED: 06/10/23 12:38 SP TYPE: STOMACH OTHR DR: Destiny Gilbert Tissues: 1 - STOMACH BIOPSY 2 - STOMACH BIOPSY 3 - ESOPHAGUS BIOPSY Procedures: GROSS AND MICRO LEVEL 4 Comments: [id number]
[2023-06-10 09:46] VITALS: BP 122/85; PULSE 71; RESP 16; TEMP 36.1; O2SAT 100
--- NOTE | 2023-06-10 09:56 | W.ANESPOSTOP ---
Postoperative Evaluation Date, Time and Location Date Performed: 06/10/23 Time Performed: 09:57 Patient Location: Day Surgery Unit Vital Signs Most Recent Imported Vital Signs: Most Recent Vital Signs Temp Pulse Resp BP Pulse Ox 36.1 C L 71 16 122/85 100 06/10/23 09:46 06/10/23 09:46 06/10/23 09:46 06/10/23 09:46 06/10/23 09:46 Pain Score Most Recent Pain Score: Most Recent Pain Score Pain Level 0 06/10/23 09:46 Assessment Mental Status: Awake (Alert & Oriented to Patient Baseline) Airway and Respiratory Function: Patent airway with normal (patient baseline) respiratory exam Cardiovascular Function: Hemodynamically Stable Hydration Status: Adequately Hydrated Nausea & Vomiting: No Nausea or Vomiting Pain: Pt. Denies Any Pain Peripheral Nerve Block: Patient did not receive a nerve block
[2023-06-10 10:13] VITALS: BP 115/92; PULSE 65; RESP 16; TEMP 36.3; O2SAT 99
== END 2023-06-10 10:30 | disposition home or self-care (01) ==
PROVIDERS: PCP Family Medicine; Visit Provider Surgery
PROC: (CPT 45378; principal; 2023-06-10 09:00)
DX: Z12.11 Encounter for screening for malignant neoplasm of colon (principal); K21.9 Gastro-esophageal reflux disease without esophagitis; K22.9 Disease of esophagus, unspecified; R10.13 Epigastric pain; K22.89 Other specified disease of esophagus
CPT/HCPCS: 45378; 43239; 88305

== ENCOUNTER 2023-07-16 08:49 | Emergency (ER) | payer BC, SELFPAY ==
[2023-07-16] VITALS (23 sets, daily range): BP systolic 113–151; BP diastolic 60–91; PULSE 56–81; RESP 10–16; TEMP 36.5–36.6; O2SAT 94–98
--- NOTE | 2023-07-16 08:30 | RT.EKG_ITS ---
APPROVED REPORT Exam: Resting ECG Reason for Exam: Dizziness Patient Location: E HR:76 bpm ECG Measurements Heart Rate 76 AXIS MD 132 P 37 QRSd 78 QRS 8 QT 367 T 7 QTc 413 Conclusion Sinus rhythm...normal P axis, V-rate 60- 99 Low voltage, precordial leads...precordial leads <1.0mV Sinus rhtyhm. WD
--- NOTE | 2023-07-16 09:00 | DI.CT_ITS ---
Exam(s) CT HEAD WO EXAM: CT HEAD WO CLINICAL HISTORY: dizziness. TECHNIQUE: Imaging Protocol: Axial computed tomography images with coronal and sagittal reformatted images were created and reviewed COMPARISON: No exams were available for comparison FINDINGS: Ventricles and Extra axial spaces: Normal in size and morphology for the patient's age. Hemorrhage: None. Cerebral parenchyma: Normal. Midline shift: None. Brainstem/Cerebellum: Normal. Calvarium: Normal. Visualized Paranasal sinuses/Mastoids: Clear. Soft Tissues: Unremarkable. IMPRESSION: 1. No acute intracranial process. 2. Findings were discussed with the emergency department at 9:49 a.m. on 07/16/2023. RADIATION DOSE DELIVERED: 714.72mGy.cm Total DLP DATA REPOSITORY: All CT scans at this facility are submitted to the National Radiology Data Registry (NRDR) Dose Index Registry (DIR) with the [employer] (ACR). RADIATION OPTIMIZATION: All CT scans at this facility use at least one of these dose optimization te chniques: automated exposure control; mA and/or kV adjustment per patient size (includes targeted exa ms where dose is matched to clinical indication); or iterative reconstruction.
--- NOTE | 2023-07-16 09:10 | ED.GENADUL_ITS ---
Discharge Plan Disposition Patient Disposition: Home Discharge Details Clinical Impression: Dizziness Primary Care Provider: Destiny Gilbert ED Provider: Kelley Bhandari Home Meds and New Rx's Prescriptions: New meclizine 25 mg tablet 25 mg PO QID MDD 100 mg PRN (Reason: dizziness) Qty: 30 0RF No Action omeprazole 20 mg capsule,delayed release(DR/EC) 20 mg PO PRN PRN levothyroxine 125 mcg tablet 1 tab PO DAILY Patient Comments: TAKE 1 TABLET BY MOUTH EVERY DAY Discharge Instructions Instructions: Benign Paroxysmal Positional Vertigo (ED), Dizziness (ED) Referrals: Destiny Gilbert [Primary Care Provider] - 3 days Discharge Data Discharge Physician: Kelley Bhandari Medical Decision Making 53-year-old female presents for evaluation of dizziness which started last night. At time my evaluation she does have some horizontal nystagmus. She is otherwise neurologically intact with NIH stroke score equal to 0. EKG does not show any acute ischemic changes. Laboratory studies including 2 troponins are unremarkable. Head CT unremarkable. Patient's symptoms did improve with meclizine. She was able to sit up and move around without difficulty. We discussed the likely diagnosis of vertigo given her symptoms. She understands that if her symptoms should worsen she should return for reevaluation. She will be discharged with a prescription for meclizine. [facility] General Date/Time Provider Initiated Documentation: 07/16/23 09:06 . HPI Narrative: 53-year-old female presents for evaluation of dizziness. Patient states that she began feeling dizzy last night. She felt like she was spinning. She did have a head cold last week which was resolving. She did not take a COVID test at that time. She states that she had 6 beers last night. She does have history of high cholesterol and does not take medication for it. Denies any h istory of high blood pressure or smoking. This morning she had another episode of spinning and had to hold onto the chair to stabilize herself. She was afraid that she may pass out. She did not have any syncopal episodes. She denies any chest pain or shortness of breath. The symptoms are better with her eyes closed and without moving. Denies any numbness or tingling to her extremities. No w eakness in her extremities. She has a very slight frontal headache which is not causing her any pain. No fevers or chills. No neck pain. Related Data Home Medications Medication Instructions Recorded Confirmed levothyroxine 125 mcg tablet 1 tab PO DAILY 07/31/22 07/16/23 omeprazole 20 mg capsule,delayed 20 mg PO PRN PRN 05/20/23 07/16/23 release meclizine 25 mg tablet 25 mg PO QID PRN dizziness #30 tabs 07/16/23 Previous Rx's Medication Instructions Recorded meclizine 25 mg tablet 25 mg PO QID PRN dizziness #30 tabs 07/16/23 Allergies Allergy/AdvReac Type Severity Reaction Status Date / Time erythromycin base AdvReac Mild Nausea Verified 07/16/23 09:22 [Erythromycin Base] General Stated Complaint: Dizzy/Sync YU: 3 Review of Systems Narrative: Remainder review of systems otherwise negative except for as noted in HPI x10. PFSH All Active Problems (Updated 07/16/23 @ 13:02 by Kelley Bhandari MD) Dizziness (Acute) Screen for colon cancer (Acute) Fracture of proximal end of left humerus (Acute 07/25/22) GERD (gastroesophageal reflux disease) (Chronic) Medical History Alcohol abuse, in remission BMI 32.0-32.9,adult Chronic anxiety Chronic low back pain Depression History of vitamin D deficiency Hyperlipidemia Hypothyroid Insomnia Osteopenia Single kidney Subcutaneous mass of neck Urinary incontinence, urge Surgical History H/O eye surgery History of colonoscopy (~05/2023) History of esophagogastroduodenoscopy (~05/2023) History of kidney surgery History of total abdominal hysterectomy per pt. partial Social History Smoking/Tobacco Use Status: Never Smoking risk assessment performed?: Yes Alcohol Intake: current Alcohol Intake frequency: 3 or more drinks per day Alcohol type: beer Details: 4-6 beers/day. 6+ beers on the weekends Drug use: Never Substance use type: does not use Housing: house Do you feel safe at home: Yes Do you feel safe in your relationship?: Yes Exam Narrative Exam Narrative: General: non-toxic, no respiratory distress, comfortable HEENT: normocephalic, atraumatic, lids and lashes normal, PERRL, EOMI, anicteric sclera, horizontal nystagmus noted, no conjunctival injection, TMs clear bilaterally, moist oral mucosa Neck: No meningeal signs Card: regular rate and rhythm, S1S2, no murmurs, rubs, or gallops Lungs: good air entry, clear to auscultation bilaterally. no wheezes, rales, rhonchi, or retractions Abd: soft, non-tender, non-distended, normal bowel sounds, no rebound or guarding, no peritoneal signs Musculoskeletal: full range of motion of arms and legs, no tenderness to palpation. no clubbing, cyanosis, or edema Neurologic: Neurologic exam: GSC 15, CN 2-12 intact bilaterally, speech normal, strength normal, sensation intact distally in all four extremities, 2+ biceps tendon reflexes, normal finger to nose, normal rapid alternating movements, no pronator drift Psych: alert and oriented Skin: no petechiae, no lesions, warm and dry Course Vital Signs Vital signs: Vital Signs Temperature 36.6 C 07/16/23 08:50 Pulse 81 07/16/23 08:50 Respiratory Rate 16 07/16/23 08:50 Blood Pressure 151/76 H 07/16/23 08:50 Pulse Oximetry 96 07/16/23 08:50 Temperature 36.6 C 07/16/23 08:50 Temperature Source Oral 07/16/23 08:50 Pulse 81 07/16/23 08:50 Respiratory Rate 12 07/16/23 09:00 Respiratory Effort Normal, Non-Labored 07/16/23 09:00 Respiratory Depth Normal 07/16/23 09:00 Respiratory Pattern Normal 07/16/23 09:00 Blood Pressure 151/76 H 07/16/23 08:50 Blood Pressure Position Supine 07/16/23 08:50 Pulse Oximetry 96 07/16/23 08:50 Oxygen Delivery Method Room Air 07/16/23 08:50 Oxygen Flow Rate 0 07/16/23 08:50 Pain Level 0 07/16/23 08:50 PAWSS Have you Been Recently Intoxicated or Drunk Within the Last 30 days?: Yes Have you Ever Experienced Previous Episodes of Alcohol Withdrawal?: No Have you ever Experienced Withdrawal Seizures?: No Have you ever Experienced Delirium Tremens(DT)s?: No Have you ever undergone Alcohol Rehabilitation Treatment (i.e, inpt ot outpatient treatment programs)?: No Have you ever Experienced Blackouts?: No Have you ever Combined Alcohol with other Downers within the last 90 days?: No Have you ever Combined Alcohol with any other Substance of Abuse during the last 90 days?: No Positive Blood Alcohol level on Presentation? [PCS.BAL]: No Evidence of Increased Autonomic Activity (i.e. HR>120, tremor, sweating, agitation, nausea)?: No Result: 1
[2023-07-16 09:22] LABS: Abs Immature Grans 0.04 10^3/uL (0.0-0.06); Absolute Basophil Count 0.02 10^3/uL (0.0-0.2); Absolute Eosinophil Count 0.11 10^3/uL (0.0-0.7); Absolute Lymphocyte Count 1.12 10^3/uL (1.2-3.4); Absolute Neutrophil Count 3.63 10^3/uL (1.2-6.7); Basophils % 0.4; HCT 43.8 % (36.0-46.0); HGB 14.5 g/dL (11.2-15.7); Immature Grans % 0.7; Lymphocytes % 20.7; MCH 28.3 pg (27.0-33.0); MCHC 33.1 % (32.0-36.0); MCV 85 fL (80-95); MPV 8.8 fL (8.0-11.0); Monocytes % 9.2; Platelet Count 225 10^3/uL (130-400); RBC 5.13 10^6/uL (3.93-5.22); RDW 12.3 % (11.7-14.6); RDW-SD 38.4 fL; WBC 5.42 10^3/uL (4.4-10.8)
[2023-07-16] MEDS: Meclizine 25 MG TAB PO ×2 (09:22→13:08)
[2023-07-16 09:45] LABS: ALT 36 U/L (14-59); AST 18 U/L (15-37); Albumin 3.5 g/dL (3.4-5.0); Alkaline Phosphatase 78 U/L (46-116); Anion Gap 6.5 mmol/L (3-11); BUN 16 mg/dL (7-18); Bilirubin, Total 0.8 mg/dL (0.2-1.0); CO2 29.5 mmol/L (21.0-32.0); Calcium 10.7 mg/dL (8.5-10.1); Chloride 103 mmol/L (98-107); Estimated GFR 66.53 (mL/min/1.73m2); Glucose 110 mg/dL (74-106); Magnesium 1.9 mg/dL (1.8-2.4); Potassium 4.4 mmol/L (3.5-5.1); Sodium 139 mmol/L (136-145); Total Protein 6.9 g/dL (6.4-8.2); Troponin I < 50 ng/L (<or=60)
[2023-07-16 10:55] LABS: COVID-19 PCR Negative (Negative); Influenza A PCR Negative (Negative); Influenza B PCR Negative (Negative); RSV PCR Negative (Negative)
[2023-07-16 10:57] LABS: Source Nasopharynx
[2023-07-16 12:47] LABS: Troponin I < 50 ng/L (<or=60)
== END 2023-07-16 17:48 | disposition home or self-care (01) ==
PROVIDERS: Emergency Provider Emergency Medicine Emergency Medical Services; PCP Family Medicine
DX: R42 Dizziness and giddiness (principal)
CPT/HCPCS: 36415; 80053; 87637; 93005; 99284; 70450; 83735; 84484; 85025; 93010

== ENCOUNTER → 2024-04-14 00:26 | Outpatient (CLI) | payer BC, SELFPAY ==
--- NOTE | 2024-04-14 11:10 | DI.RAD_ITS ---
Exam(s) XR KNEE LT 4V AP,LAT,SHABBIR,PAT EXAM: XR KNEE LT 4V AP,LAT,SHABBIR,PAT CLINICAL HISTORY: DISORDER OF PATELLOFEMORAL JOINT, M22.2X9. TECHNIQUE: 2D digital imaging was performed of the left knee. Six images were obtained. Merchant,A P, lateral and PA tunnel views were obtained. COMPARISON: CR LEFT KNEE 3 VIEW COMPLETE from 07/09/2011 FINDINGS: BONES: No acute fracture is present. No bony destructive lesion is seen. There is an enthesophyte at the anterior patella. JOINTS: There is mild narrowing of the medial femoral tibial joint. No joint effusion is seen. The p atellofemoral joint is well maintained. SOFT TISSUE: Normal. IMPRESSION: Minimal medial femoral tibial joint space narrowing. The patellofemoral joint is well maintained. DATA REPOSITORY: RADIATION DOSE DELIVERED:
--- NOTE | 2024-04-14 11:11 | DI.RAD_ITS ---
Exam(s) XR KNEE RT 4V AP,LAT,SHABBIR,PAT EXAM: XR KNEE RT 4V AP,LAT,SHABBIR,PAT CLINICAL HISTORY: DISORDER OF PATELLOFEMORAL JOINT, M22.2X9. TECHNIQUE: 2D digital imaging was performed of the right knee. Five views obtained. Merchant, AP, la teral and PA tunnel views were obtained. COMPARISON: No priors for comparison. FINDINGS: BONES: No acute fracture is present. No bony destructive lesion is seen. There is an enthesophyte at the anterior patella. JOINTS: The knee is normally aligned. No joint effusion is seen. SOFT TISSUE: Normal. IMPRESSION: Mild joint space narrowing in the medial femoral tibial joint. The patellofemoral joint appears well maintained. DATA REPOSITORY: RADIATION DOSE DELIVERED:
== END ==
PROVIDERS: PCP Family Medicine; Visit Provider Family Medicine
DX: M22.2X9 Patellofemoral disorders, unspecified knee (principal)
CPT/HCPCS: 73564

== ENCOUNTER 2024-04-24 13:47 | Outpatient (REF) | payer BC, SELFPAY ==
[2024-04-24 16:03] LABS: ALT 41 U/L (14-59); AST 24 U/L (15-37); Albumin 3.8 g/dL (3.4-5.0); Alkaline Phosphatase 85 U/L (46-116); Anion Gap 6.8 mmol/L (3-11); BUN 7 mg/dL (7-18); Bilirubin, Total 0.96 mg/dL (0.2-1.0); CO2 28.2 mmol/L (21.0-32.0); CREATININE 0.9 mg/dL (0.55-1.02); Calcium 9.1 mg/dL (8.5-10.1); Chloride 106 mmol/L (98-107); Estimated GFR 75.03 (mL/min/1.73m2); Glucose 105 mg/dL (74-106); Potassium 4.3 mmol/L (3.5-5.1); Sodium 141 mmol/L (136-145); TSH 0.62 uIU/Ml (0.36-3.74); Total Protein 6.9 g/dL (6.4-8.2); Vitamin D 25 Total 69.9 ng/mL (30-100)
== END 2024-04-24 13:48 | disposition home or self-care (01) ==
LOC: NCHCN 13:47
PROVIDERS: PCP Family Medicine; Visit Provider Family Medicine
DX: E03.9 Hypothyroidism, unspecified (principal); E55.9 Vitamin D deficiency, unspecified; R03.0 Elevated blood-pressure reading, without diagnosis of hypertension
CPT/HCPCS: 80053; 82306; 84443

== ENCOUNTER 2025-04-16 09:26 | Outpatient (REF) | payer BC, SELFPAY ==
[2025-04-16 15:06] LABS: Hemoglobin A1C 5.2 % (<5.7)
[2025-04-16 15:24] LABS: ALT 29 U/L (14-59); AST 20 U/L (15-37); Albumin 3.9 g/dL (3.4-5.0); Alkaline Phosphatase 75 U/L (46-116); Anion Gap 7.9 mmol/L (3-11); BUN 13 mg/dL (7-18); Bilirubin, Total 1.9 mg/dL (0.2-1.0); CO2 27.1 mmol/L (21.0-32.0); CREATININE 0.7 mg/dL (0.55-1.02); Calcium 9.6 mg/dL (8.5-10.1); Calculated LDL 179 mg/dL (<100); Chloride 102 mmol/L (98-107); Cholesterol 280 mg/dL (<200); Estimated GFR 101.44 (mL/min/1.73m2); Glucose 110 mg/dL (74-106); HDL Cholesterol 86 mg/dL (>or=50); Potassium 4.7 mmol/L (3.5-5.1); Sodium 137 mmol/L (136-145); TSH 3.21 uIU/mL (0.36-3.74); Total Protein 7.4 g/dL (6.4-8.2); Triglyceride 79 mg/dL (<150)
== END 2025-04-16 09:27 | disposition home or self-care (01) ==
LOC: NCHCN 09:26
PROVIDERS: PCP Family Medicine; Visit Provider Family Medicine
DX: Z00.00 Encounter for general adult medical examination without abnormal findings (principal); F10.20 Alcohol dependence, uncomplicated; E03.9 Hypothyroidism, unspecified; Z13.1 Encounter for screening for diabetes mellitus; Z13.220 Encounter for screening for lipoid disorders
CPT/HCPCS: 80053; 80061; 83036; 84443

== ENCOUNTER 2025-05-14 02:36 | Outpatient (CLI) | payer BC, SELFPAY ==
--- NOTE | 2025-05-14 14:28 | DI.MAMMO_ITS ---
Exam(s) MAMMO SCREENING EXAM: MAMMO SCREENING CLINICAL HISTORY: Screening, Z12.31. TECHNIQUE: Bilateral full field digital CC and MLO mammographic images were obtained with 3D tomosynthesis and utilizing computer aided detection (CAD). COMPARISON: Prior mammograms were reviewed. FINDINGS: There has been no significant change in the appearance and distribution of the fibroglandular tissue. There are no new spiculated masses nor malignant appearing microcalcification groups. There is no significant architectural distortion nor skin thickening-retraction. IMPRESSION: No radiographic evidence of malignancy. BI-RADS Category 1 - Negative Breast Density - Category B - There are scattered areas of fibroglandular density. Breast density Category C or D implies that the patient has dense breast tissue. Dense breast tissue can make it harder to find cancer on a mammogram. Dense breast tissue is also associated with an increased risk of breast cancer. This information about the result of the mammogram report was provided to the patient to raise their awareness. Use this report when you speak with the patient about their risks for breast cancer, which includes their family history. At that time, you may recommend additional screening tests (Ultrasound or MRI) as these tests may add significant information. A negative radiographic report should not delay biopsy if a dominant or clinically suspicious mass is present. Up to ten percent of cancers are not identified on mammography. A negative report may reinforce clinical impression. Adenosis and dense breasts may obscure an underlying neoplasm. False positive reports average 6 to 10%. Patient will receive a letter notifying them of these results.
== END 2025-05-14 02:56 ==
LOC: DI 02:36
PROVIDERS: PCP Family Medicine; Visit Provider Family Medicine
DX: Z12.31 Encounter for screening mammogram for malignant neoplasm of breast (principal); R92.323 Mammographic fibroglandular density, bilateral breasts
CPT/HCPCS: 77063; 77067

== ENCOUNTER 2025-05-28 17:52 | Outpatient (REF) | payer BC, SELFPAY ==
[2025-05-28 21:22] LABS: Bilirubin, Direct 0.3 mg/dL (0.0-0.2); Bilirubin, Total 1.5 mg/dL (0.2-1.0)
== END 2025-05-28 17:53 | disposition home or self-care (01) ==
LOC: NCHCN 17:52
PROVIDERS: PCP Family Medicine; Visit Provider Family Medicine
DX: E80.6 Other disorders of bilirubin metabolism (principal)
CPT/HCPCS: 82247; 82248